=== PATIENT | male | born 2000 | race Hispanic/Latino ===

== ENCOUNTER 2021-02-27 10:18 | Emergency (ER) | payer OTHER ==
[2021-02-27] MEDS ORDERED: BUPIVACAINE 0.5% PF 10 ML VIAL ONE (10:46)
[2021-02-27] MEDS ORDERED: LIDOCAINE 1% MPF 5 ML VIAL ONE (10:46)
--- NOTE | 2021-02-27 11:02 | RAD REPORT ---
EXAM DESCRIPTION: RAD -Hand Left 3 View - 02/27/2021 10:38 am CLINICAL HISTORY: Left hand pain status post injury FINDINGS: Posteromedial dislocation fifth middle phalanx. No fracture seen
--- NOTE | 2021-02-27 11:57 | ER ---
Nurse's Notes [facility] Name: Esdras Mittal Age: 21 yrs Sex: Male : 2000 Arrival Date: 02/27/2021 Time: 10:20 Bed 23 Private MD: Diagnosis: Dislocation of proximal interphalangeal joint of left little finger, initial encounter Presentation: 02/27 10:29 Chief complaint: Patient states: he slipped and fell on wet grass. Dislocating is left ap3 pinky. Coronavirus screen: At this time, the client does not indicate any symptoms associated with coronavirus-19. Ebola Screen: No symptoms or risks identified at this time. Initial Sepsis Screen: Does the patient meet any 2 criteria? No. Patient's initial sepsis screen is negative. Does the patient have a suspected source of infection? No. Patient's initial sepsis screen is negative. Risk Assessment: Do you want to hurt yourself or someone else? Patient reports no desire to harm self or others. Onset of symptoms was February 27, 2021. Mechanism of Injury: Fall. 10:29 Method Of Arrival: Ambulatory ap3 10:29 Acuity: JB 3 ap3 Triage Assessment: 10:33 General: Appears in no apparent distress. Behavior is cooperative, anxious. Pain: ap3 Complains of pain in left little finger Pain began suddenly. EENT: No deficits noted. Neuro: Level of Consciousness is awake, alert, obeys commands, Oriented to person, place, time, situation, Appropriate for age Gait is steady, Speech is normal. Cardiovascular: No deficits noted. Respiratory: Airway is patent Respiratory effort is even, unlabored, Respiratory pattern is regular, symmetrical. GI: No signs and/or symptoms were reported involving the gastrointestinal system. Musculoskeletal: Bony deformity noted of left little finger. Injury Description: Deformity sustained to left little finger fall. Historical: - Allergies: 10:35 No Known Allergies; ap3 - Home Meds: 10:35 Lexapro 30 mg Oral once daily [Active]; ADHD medication 12.5 mg daily [Active]; ap3 - Immunization history:: Adult Immunizations up to date, Client reports having NOT received the Covid vaccine. Last tetanus immunization: up to date. - Social history:: Smoking status: Patient denies any tobacco usage or history of. Patient uses alcohol, on a daily basis. admits to "couple of beers" a day. Screenin:33 Abuse screen: Denies threats or abuse. Nutritional screening: No deficits noted. ap3 Tuberculosis screening: No symptoms or risk factors identified. Fall Risk Fall in past 12 months (25 points). No secondary diagnosis (0 pts). No IV (0 pts). Ambulatory Aid- None/Bed Rest/Nurse Assist (0 pts). Gait- Normal/Bed Rest/Wheelchair (0 pts) Mental Status- Oriented to own ability (0 pts). Total Sarmiento Fall Scale indicates No Risk (0-24 pts). Assessment: 10:40 Pain: Complains of pain in palmar aspect of distal phalanx of left little finger and aj2 palmar aspect of middle phalanx of left little finger Pain does not radiate. Pain currently is 3 out of 10 on a pain scale. Quality of pain is described as sharp, Pain began suddenly, Is continuous, Alleviated by nothing. Aggravated by increased activity, repositioning. Vital Signs: 10:29 BP 110 / 61; Pulse 72; Resp 17; Temp 98.0; Pulse Ox 100% ; Weight 96.62 kg; Height 5 ap3 ft. 8 in. (172.72 cm); Pain 2/10; 10:40 BP 110 / 61; Pulse 72; Resp 18; Temp 98.0; Pulse Ox 100% ; aj2 12:21 BP 110 / 61; Pulse 72; Resp 20; Pulse Ox 100% ; aj2 10:29 Body Mass Index 32.39 (96.62 kg, 172.72 cm) ap3 ED Course: 10:20 Patient arrived in ED. ds1 10:21 Janine Coley FNP-C is PHCP. kb 10:21 Arnie Quezada MD is Attending Physician. kb 10:33 Triage completed. ap3 10:36 Arm band placed on right wrist. ap3 10:36 Patient has correct armband on for positive identification. Bed in low position. Call ap3 light in reach. Side rails up X2. Pulse ox on. NIBP on. Door closed. Noise minimized. 10:38 Natalia Mercado is Primary Nurse. aj2 10:38 Hand Left 3 View XRAY In Process Unspecified. EDMS 10:40 No apparent distress. aj2 10:40 No provider procedures requiring assistance completed. Patient did not have IV access aj2 during this emergency room visit. 12:02 Hand Left 2 View XRAY In Process Unspecified. EDMS Administered Medications: 10:39 Drug: Lidocaine (1 %) 1 vials Volume: 5 ml; Route: Infiltration; aj2 10:39 Drug: Marcaine (bupivacaine) (0.5 %) 1 vials Volume: 10 ml; Route: Infiltration; aj2 Outcome: 11:57 Discharge ordered by MD. harmon 12:03 Discharged to home ambulatory. aj2 12:03 Condition: stable 12:03 Discharge instructions given to patient, Instructed on discharge instructions, follow up and referral plans. Demonstrated understanding of instructions, follow-up care, medications, Work release form provided.. 12:22 Patient left the ED. aj2 Signatures: Dispatcher [employer] EDMS Janine Coley, WILBERT BELTRANP-Pooja Alonzo ds1 Madeline Espinoza RN RN ap3 Natalia Mercado aj2 Corrections: (The following items were deleted from the chart) 10:35 10:33 General: Appears ap3 ap3
--- NOTE | 2021-02-27 11:57 | EDPHYS ---
Physician Documentation [facility] Name: Esdras Mittal Age: 21 yrs Sex: Male : 2000 Arrival Date: 02/27/2021 Time: 10:20 Bed 23 Private MD: ED Physician Arnie Quezada HPI: 02/27 10:46 This 21 yrs old Male presents to ER via Ambulatory with complaints of Finger kb Injury - Fall Injury. 10:46 The patient or guardian reports decreased range of motion, deformity, injury, pain, kb swelling, tenderness. The complaints affect the left little finger. Context: The problem was sustained outdoors, resulted from a fall. Onset: The symptoms/episode began/occurred just prior to arrival. Modifying factors: The symptoms are alleviated by nothing, the symptoms are aggravated by nothing. Associated signs and symptoms: The patient has no apparent associated signs or symptoms. Severity of symptoms: At their worst the symptoms were moderate, in the emergency department the symptoms are unchanged. The patient has not experienced similar symptoms in the past. The patient has not recently seen a physician. Pt reports he was squatting down on wet grass and he slid and fell. reports deformity to left little finger. Historical: - Allergies: 10:35 No Known Allergies; ap3 - Home Meds: 10:35 Lexapro 30 mg Oral once daily [Active]; ADHD medication 12.5 mg daily [Active]; ap3 - Immunization history:: Adult Immunizations up to date, Client reports having NOT received the Covid vaccine. Last tetanus immunization: up to date. - Social history:: Smoking status: Patient denies any tobacco usage or history of. Patient uses alcohol, on a daily basis. admits to "couple of beers" a day. ROS: 10:44 Constitutional: Negative for fever, chills, and weight loss. kb 10:44 MS/extremity: Positive for injury or acute deformity, decreased range of motion, deformity, pain, of the left little finger. 10:44 All other systems are negative. Exam: 10:44 Constitutional: This is a well developed, well nourished patient who is awake, alert, kb and in no acute distress. Head/Face: Normocephalic, atraumatic. ENT: Moist Mucous membranes Respiratory: Respirations even and unlabored. No increased work of breathing, no retractions or nasal flaring. Skin: Warm, dry with normal turgor. Normal color. Neuro: Awake and alert, GCS 15, oriented to person, place, time, and situation. Moves all extremities. Normal gait. Psych: Awake, alert, with orientation to person, place and time. Behavior, mood, and affect are within normal limits. 10:44 Musculoskeletal/extremity: Extremities: grossly normal except: noted in the PIP of left little finger: decreased ROM, deformity, pain, tenderness, ROM: limited active range of motion, in the left little finger, Circulation is intact in all extremities. Sensation intact. Joints: All joints are normal except the PIP of left little finger displays deformity, dislocation, tenderness. Vital Signs: 10:29 BP 110 / 61; Pulse 72; Resp 17; Temp 98.0; Pulse Ox 100% ; Weight 96.62 kg; Height 5 ap3 ft. 8 in. (172.72 cm); Pain 2/10; 10:40 BP 110 / 61; Pulse 72; Resp 18; Temp 98.0; Pulse Ox 100% ; aj2 12:21 BP 110 / 61; Pulse 72; Resp 20; Pulse Ox 100% ; aj2 10:29 Body Mass Index 32.39 (96.62 kg, 172.72 cm) ap3 Procedures: 10:26 Nerve block: (digital) of palmar aspect of proximal phalanx of left little finger kb Medication: Lidocaine 1% without epinephrine Marcaine 0.5%, Amount: 4 mls were injected, Effect: the patient has resolution of the pain, Set up for procedure. Performed by Janine ATKINS Patient tolerated well. 10:43 Reduction: of the PIP of left little finger, using traction, manipulation, Immobilized kb with finger splint, Patient tolerated well. Post reduction film - reveals normal alignment. MDM: 10:21 Patient medically screened. kb 10:43 Data reviewed: vital signs, nurses notes. Data interpreted: Pulse oximetry: on room air kb is 100 %. Interpretation: normal. 11:47 Counseling: I had a detailed discussion with the patient and/or guardian regarding: the kb historical points, exam findings, and any diagnostic results supporting the discharge/admit diagnosis, radiology results, the need for outpatient follow up, a orthopedic surgeon, to return to the emergency department if symptoms worsen or persist or if there are any questions or concerns that arise at home. 02/27 10:21 Order name: Hand Left 3 View XRAY; Complete Time: 11:05 kb 02/27 10:41 Order name: Hand Left 2 View XRAY; Complete Time: 12:14 kb 02/27 10:42 Order name: Finger Splint; Complete Time: 10:43 kb Administered Medications: 10:39 Drug: Lidocaine (1 %) 1 vials Volume: 5 ml; Route: Infiltration; aj2 10:39 Drug: Marcaine (bupivacaine) (0.5 %) 1 vials Volume: 10 ml; Route: Infiltration; aj2 Disposition Summary: 02/27/21 11:57 Discharge Ordered Location: Home kb Condition: Stable kb Diagnosis - Dislocation of proximal interphalangeal joint of left little finger, initial kb encounter Followup: kb - With: Emergency Department - When: As needed - Reason: Worsening of condition Followup: kb - With: Private Physician - When: 2 - 3 days - Reason: Recheck today's complaints, Continuance of care, Re-evaluation by your physician Discharge Instructions: - Discharge Summary Sheet kb - Finger or Thumb Dislocation, [id number] kb - Scalp Ringworm, Pediatric, [id number] aj2 Forms: - Medication Reconciliation Form kb - Thank You Letter kb - Antibiotic Education kb - Prescription Opioid Use kb - Work release form aj2 Addendum: 02/28/2021 16:58 Co-signature as Attending Physician, Arnie Quezada MD I agree with the assessment and k dr plan of care. Signatures: Dispatcher [employer] Janine Zacarias, SUPPLIES PACKER-C SUPPLIES PACKER-CkArnie Mccoy MD MD kdr Prokisch, Amanda, RN RN ap3 Natalia Mercado aj2
--- NOTE | 2021-02-27 12:12 | RAD REPORT ---
EXAM DESCRIPTION: RAD - Hand Left 2 View - 02/27/2021 12:03 pm CLINICAL HISTORY: Finger dislocation FINDINGS: Fifth middle phalanx dislocation has been reduced. No fracture seen
[2021-02-27 12:28] VITALS: BP 110/61; TEMP 98; O2SAT 100
== END 2021-02-27 12:22 | disposition home or self-care (01) ==
LOC: ER 10:18
PROC: 0RSXXZZ Reposition Left Finger Phalangeal Joint, External Approach (ICD-10-PCS; principal; 2021-02-27)
DX: S63.287A Dislocation of proximal interphalangeal joint of left little finger, initial encounter (principal); W01.0XXA Fall on same level from slipping, tripping and stumbling without subsequent striking against object, initial encounter; Y92.89 Other specified places as the place of occurrence of the external cause
CPT/HCPCS: 64450; 99283